=== PATIENT | male | born 1960 | race Caucasian/White ===

== ENCOUNTER 2020-05-06 17:35 | Outpatient (CLI) | payer BC, SELFPAY ==
[2020-05-06 17:56] LABS: Basophils Absolute Auto 0.05 K/mm3 (0.00-0.10); Basophils Percent Auto 0.8 % (0.0-1.0); Eosinophils Absolute Auto 0.09 K/mm3 (0.02-0.50); Eosinophils Percent Auto 1.4 % (1.0-6.0); Hematocrit 47.4 % (40.0-54.0); Hemoglobin 15.8 g/dL (14.0-18.0); Immature Granulocyte Absolute 0.01 K/mm3 (0.00-0.00); Immature Granulocyte Percent A 0.2 % (0.0-0.0); Lymphocytes Absolute Auto 2.47 K/mm3 (1.10-4.50); Lymphocytes Percent Auto 39.6 % (18.0-42.0); Mean Corpuscular HGB Conc 33.3 g/dL (32.0-36.0); Mean Corpuscular Hemoglobin 31.3 pg (27.0-31.0); Mean Platelet Volume 9.2 fl (8.7-11.0); Monocytes Absolute Auto 0.56 K/mm3 (0.10-0.90); Neutrophils Absolute Auto 3.1 K/mm3 (1.7-7.2); Platelet Count Result 234 K/mm3 (150-420); Red Blood Count 5.04 M/mm3 (4.70-6.10); Red Cell Distribution Width 11.7 % (11.6-14.4); White Blood Count 6.2 K/mm3 (4.8-10.8)
[2020-05-06 17:57] LABS: Add Urine Microscopic? NO; Appearance Urine Clear (Clear); Bilirubin Urine Negative (Negative); Blood Urine Negative (Negative); Color Urine Yellow (Yellow); Glucose Urine UA Negative (Negative); Ketones Urine Negative (Negative); Leukocyte Esterase Ur Negative (Negative); Nitrate Urine Negative (Negative); Protein Urine Negative (Negative); Specific Grav Ur >= 1.030 (1.010-1.020); Urobilinogen Urine 0.2 mg/dL (0.2-1.0); pH Urine 5.5 (5.0-8.0)
[2020-05-06 18:39] LABS: Alanine Aminotransferase 40 U/L (16-63); Albumin Level 4.2 g/dL (3.4-5.0); Alkaline Phosphatase 72 U/L (46-116); Anion Gap 7 mmol/L (8-16); Aspartate Amino Transferase 22 U/L (15-37); Bilirubin,Total 0.6 mg/dL (0.00-1.00); Blood Urea Nitrogen 16 mg/dL (7-18); Calcium 9.3 mg/dL (8.5-10.1); Carbon Dioxide 32 mmol/L (21-32); Chloride 103 mmol/L (98-108); Cholesterol 243 mg/dL (0-200); Creatine Kinase 169 U/L (39-308); Estimated Glomerular Filt Rate > 60; Glucose 92 mg/dL (70-99); HDL Direct 39 mg/dL (40-60); LDL Cholesterol Calculated 123 mg/dL (<130); Osmolality Calculated 295 mOsm/kg (285-295); Potassium 4.2 mmol/L (3.5-5.1); Sodium 142 mmol/L (136-145); Total Protein 7.2 g/dL (6.4-8.2); Triglycerides 407 mg/dL (0-150)
[2020-05-06 18:56] LABS: LDL Cholesterol Direct 107 mg/dL (0-130)
== END 2020-05-06 17:36 | disposition home or self-care (01) ==
LOC: CHSLAB 17:36
PROVIDERS: PCP Internal Medicine; Visit Provider Internal Medicine
DX: Z00.00 Encounter for general adult medical examination without abnormal findings (principal)
CPT/HCPCS: 36415; 80053; 80061; 81003; 82550; 83721; 85025

== ENCOUNTER 2021-02-22 08:31 | Outpatient (RCR) | payer BC, SELFPAY ==
--- NOTE | 2021-02-22 11:08 | OTOPEVAL ---
Thank you for referring Doug Pena to [facility] [place] [place] The patient is scheduled to be seen for therapy? ____x/week for ___ weeks. Please review, sign, date and return this plan of care OSCAR. I agree with and certify that the following plan of care is medically necessary. Referring Physician Date Admitting Provider: Attending Provider: Gary Blackman Referring Provider: *OT Outpatient Evaluation Start: 02/22/21 07:32 Freq: Status: Active Protocol: Document 02/22/21 08:05 [facility] [place] (Rec: 02/22/21 09:55 [facility] [place] [id number]) Therapy Assessment Status Assessment Status Assessment Status Evaluation Evaluation Information Problem Diagnosis R medial elbow pain Onset 08/2020 Cause R medial epicondylitis Subjective Information Patient reports the following: Query Text:As Reported By Patient/ constant pain in the R medial Family elbow. Patient reports that it wakes him through the night and becomes very painful when it is hanging by his side for a prolonged time. 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 Patient has recently started taking a steroid and is on day 4 however has not noticed much improvement. 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
--- NOTE | 2021-02-23 15:54 | PCOTNOTE ---
On 02/23/21, the student, [ Ambika Goss ], provided care and completed [facility] documentation on this patient. I have reviewed the student's documentation and agree with the findings. MS
--- NOTE | 2021-03-01 09:48 | PCOTNOTE ---
On 03/01/21, the student, [Ambika Goss ], provided care and completed [facility] documentation on this patient. I have reviewed the student's documentation and agree with the findings. MS
--- NOTE | 2021-03-10 13:19 | PCOTNOTE ---
On 03/08/21, the student, [ Ambika Goss], provided care and completed [facility] documentation on this patient. I have reviewed the student's documentation and agree with the findings. MS
--- NOTE | 2021-03-29 17:49 | OTOPEVAL ---
Thank you for referring Doug Pena to [facility].? The patient is scheduled to be seen for therapy? ____x/week for ___ weeks. Please review, sign, date and return this plan of care OSCAR. I agree with and certify that the following plan of care is medically necessary. Referring Physician Date Admitting Provider: Attending Provider: Gary Blackman Referring Provider: *OT Outpatient Evaluation Start: 02/22/21 07:32 Freq: Status: Active Protocol: Document 03/29/21 08:30 [facility] (Rec: 03/29/21 17:49 [facility] [id number]) Therapy Assessment Status Assessment Status Assessment Status Discharge Outpatient Past Medical History Neurological History Hx Neurological Disorders No Significant History Cardiovascular History Hx Cardiac Disorders No Significant History Respiratory History Hx Respiratory Disorders No Significant History Gastrointestinal History Hx Gastroesophageal Reflux Disease Yes: Doctor recently started patient on acid reflux medication Genitourinary History Hx Genitourinary Disorders No Significant History Musculoskeletal History Hx Musculoskeletal Disorders No Significant History Hematological History Hx Hematological Disorders No Significant History Endocrine History Hx Endocrine Disorders No Significant History HEENT History Hx HEENT Disorders No Significant History Integumentary History Hx Skin Disorders No Significant History Reproductive History Hx Reproductive Disorders No Significant History Psychosocial History Hx Psychiatric Disorders No Significant History Pain History History of Any Previous or Ongoing No Significant History Instance of Pain Anesthesia History Hx Anesthesia Reactions No Significant History Evaluation Information Problem Subjective Information Patient reports that overall Query Text:As Reported By Patient/ his R elbow feels much better Family since starting therapy. He reports that the highest his name gets is a 2/10 but primarily is a 0 or 1. Patient reports that he feels confident with all home programming and is able to perform everything that needs to. Pain Assessment Timing of Pain Assessment Timing of Pain Assessment Re-assessment Pain Scale Pain Scale Used Numeric (1 - 10) Self Report Pain Assessment Right Elbow(s) Reported Pain Level 1 Pain Score Pain Score 1: Self Report Interventions Used Interventions Used By Clinicians Activity or ADL's,Heat,Manual
== END 2021-03-29 17:56 | disposition home or self-care (01) ==
LOC: CHSOT 08:31
DX: M25.521 Pain in right elbow (principal)
CPT/HCPCS: 97014; 97035; 97110; 97140; 97165; G0283

== ENCOUNTER 2021-03-18 09:13 | Outpatient (CLI) | payer BC, SELFPAY ==
--- NOTE | ~2021-03-18 | XR_ITS ---
MODIFIED ESOPHAGRAM HISTORY: Dysphagia. TECHNIQUE: Modified barium esophagram was performed by speech pathologist under radiologist fluorosco pic guidance. This was recorded on tape. The exam was reviewed on 03/18/2021 11:11 CDT. One fluoros copic image.. Fluoroscopy time is 1.1 minutes. FINDINGS: Lateral projection of the cervical spine demonstrates normal alignment with mildly promin ent ventral osteophyte at C4.. Normal oral stage. During pharyngeal stage there is vallecular and pir iform sinus residue without relation or aspiration.. IMPRESSION: 1: Normal swallowing function without penetration or aspiration. 2: Please refer to speech pathologist report for additional detail. Reviewed, dictated and finalized at location B.
--- NOTE | 2021-03-18 11:06 | STOPEVAL ---
Thank you for referring Doug Pena JrTriny to [facility].? This was an evaluation only. Please review, sign, date and return this OSCAR. I agree with the evaluation findings. Referring Physician Date Admitting Provider: Attending Provider: Cecil Wolfe MD Referring Provider: [facility] Outpatient Evaluation Start: 03/18/21 10:31 Freq: Status: Active Protocol: Document 03/18/21 09:50 [facility] (Rec: 03/18/21 11:05 [facility] [id number]) Therapy Assessment Status Assessment Status Assessment Status Evaluation Outpatient Past Medical History Past Medical History Source of Past Medical History Patient Neurological History Hx Neurological Disorders No Significant History Cardiovascular History Hx Cardiac Disorders No Significant History Respiratory History Hx Respiratory Disorders No Significant History Gastrointestinal History Hx Gastroesophageal Reflux Disease Yes: Doctor recently started patient on acid reflux medication Genitourinary History Hx Genitourinary Disorders No Significant History Musculoskeletal History Hx Musculoskeletal Disorders No Significant History Hematological History Hx Hematological Disorders No Significant History Endocrine History Hx Endocrine Disorders No Significant History HEENT History Hx HEENT Disorders No Significant History Integumentary History Hx Skin Disorders No Significant History Reproductive History Hx Reproductive Disorders No Significant History Psychosocial History Hx Psychiatric Disorders No Significant History Pain History History of Any Previous or Ongoing No Significant History Instance of Pain Anesthesia History Hx Anesthesia Reactions No Significant History Evaluation Information Problem Diagnosis Dysphagia Onset 1 year ago Subjective Information Patient reported that he Query Text:As Reported By Patient/ started having difficulty Family swallowing solid foods within the past year. Difficult foods currently include; palestinian fries, hamburger, rice, meat, nuts, pizza, raw vegetable. He complains of food going into the nasal cavity but also pointed to his throat with difficulty. He did not report to start coughing but would throat clear and eventually the bolus would clear. He reported difficulty 4-5x per week. Prior Level of
== END 2021-03-18 09:14 | disposition home or self-care (01) ==
LOC: CHSIMG 09:16
PROVIDERS: PCP Internal Medicine; Visit Provider Internal Medicine
DX: R13.10 Dysphagia, unspecified (principal)
CPT/HCPCS: 92611

== ENCOUNTER 2021-05-26 01:07 | Day surgery (SDC) | payer BC, SELFPAY ==
[2021-05-18 10:42] VITALS: BMI 25.9
--- NOTE | 2021-05-25 13:57 | P.PNAN_ITS ---
Anes - Initial Pre Proc Eval Procedure: Operation Date: 05/26/21 08:00 Proposed Procedures p Esophagogastroduodenoscopy - Da Loera MD Date/Time: 05/25/21 13:57 Surgeon: Da Loera MD Pre Op Diagnosis: dysphagia Patient Data Age: 60 Gender: M Height: 1.78 m Weight: 82 kg Allergies Allergy/AdvReac Type Severity Reaction Status Date / Time No Known Allergies Allergy Verified 05/26/21 06:59 Home Medications Medication Instructions Recorded Confirmed Type atorvastatin 10 mg tablet 10 mg PO DAILY 05/12/21 05/18/21 History metoclopramide HCl 10 mg tablet 10 mg PO Q6H PRN 05/12/21 05/18/21 History pantoprazole 40 mg tablet,delayed 40 mg PO BID tablet 05/12/21 05/18/21 History release tamsulosin 0.4 mg capsule 0.4 mg PO DAILY 05/12/21 05/18/21 History Patient hx anesthesia problems: none Family hx anesthesia problems: none Results Review: All pre-operative results and documents have been reviewed as part of the pre-operative evaluation. [facility] Past Medical History Medical History (Updated 05/26/21 @ 07:22 by Da Loera MD) HLD (hyperlipidemia) Overweight (BMI 25.0-29.9) Family History Family History Other Family history of congestive heart failure Family history of coronary artery disease Family history of elevated blood lipids Family history of kidney disease Hypertension Social History Social History Smoking status: Never smoker Alcohol intake: never Substance use: never Substance use type: does not use Living arrangements: with family Spiritual care concerns: No Anes - Eval Final PreProcedure Day of Procedure 05/25/21 13:57 Patient weight: overweight Heart: regular rate and rhythm Lungs: clear to auscultation and normal air movement Airway: Mallampati scale class II Neurological: alert and oriented Last oral intake: >/= 8 hours ASA classification: II Emergent: no Anesthetic plan: proceed Anesthesia type and monitoring: general GIVS and standard monitoring Results Review: All pre-operative results and documents have been reviewed as part of the pre-operative evaluation. Informed Consent: The patient's anesthetic plan and its attendant risks and benefits were discussed with the patient/family/POA. Questions were solicited and answers provided to the satisfaction of the patient/family/POA.
[2021-05-26 07:00] VITALS: BP 124/92; PULSE 80; RESP 16; TEMP 36.1; O2SAT 98
[2021-05-26] MEDS: LACTATED RINGERS 1,000 ML 150 ML IV CONT (07:09)
--- NOTE | 2021-05-26 07:20 | WPDGICN ---
Assessment and Plan Assessment and plan (1) Dysphagia: Code(s): R13.10 - Dysphagia, unspecified Status: Acute Assessment and Plan: Patient with complaints of dysphagia. Plan is for EGD to assess for possible esophageal etiology. Also to exclude any diverticula or narrowing of the esophagus. His history is difficult to ascertain the etiology. Further recommendations will be given after EGD. GI Consult Note Consult date/time: 05/26/21 07:20 HPI: Doug Pena Jr. is a 60 year old male Presents for EGD. He has complaints of difficulty swallowing. He states small pieces of food will catch in the back of his throat. Sometimes he will fill it up in the nasal area. Sometimes will 5 be dislodged and come back up easily. He states that when this occurs he is usually able to eat. Patient had 1 episode with some sternal pain pain burning that occurred at work. Otherwise has had no pain. Patient was empirically tried on pantoprazole and Reglan. It is uncertain whether this made any difference in his symptoms. He presents today for EGD to evaluate more thoroughly. He tells me a modified barium swallow was performed and was unremarkable. Review of Systems Review of Systems: All systems reviewed & are unremarkable except as noted in HPI and below PMFSH Past Medical History Medical History (Updated 05/26/21 @ 07:22 by Da Loera MD) HLD (hyperlipidemia) Overweight (BMI 25.0-29.9) Family History Family History Other Family history of congestive heart failure Family history of coronary artery disease Family history of elevated blood lipids Family history of kidney disease Hypertension Social History Social History Smoking status: Never smoker Alcohol intake: never Substance use: never Substance use type: does not use Living arrangements: with family Spiritual care concerns: No Meds Home Medications and Allergies Home Medications Medication Instructions Recorded Confirmed Type atorvastatin 10 mg tablet 10 mg PO DAILY 05/12/21 05/26/21 History metoclopramide HCl 10 mg tablet 10 mg PO Q6H PRN 05/12/21 05/26/21 History pantoprazole 40 mg tablet,delayed 40 mg PO BID tablet 05/12/21 05/26/21 History release tamsulosin 0.4 mg capsule 0.4 mg PO DAILY 05/12/21 05/26/21 History Allergies Allergy/AdvReac Type Severity Reaction Status Date / Time No Known Allergies Allergy Verified 05/26/21 06:59 Vital Signs Vital Signs - 24 hr 05/26/21 07:00 Temperature 97.0 F L Pulse Rate 80 Respiratory Rate 16 Blood Pressure 124/92 H Pulse Oximetry 98 Exam Narrative: Physical exam reveals patient be alert. Vital signs stable. HEENT exam is unremarkable. Patient is anicteric. Lungs are clear to auscultation and percussion. Heart is without murmur or extra sounds. Abdominal exam bowel sounds are present soft nontender with no organomegaly.
[2021-05-26] MEDS: BENZOCAINE (*SP) 60 ML SPRAY CAN (HURRICAINE) 1 SPRAY MUCOUS MEM (07:57)
[2021-05-26 08:12] VITALS: BP 119/79; PULSE 74; RESP 20; O2SAT 98
[2021-05-26 08:22] VITALS: BP 125/86; PULSE 85; RESP 20; O2SAT 99
[2021-05-26 08:32] VITALS: BP 130/91; PULSE 67; RESP 14; O2SAT 100
--- NOTE | 2021-05-26 08:41 | SUR.PHASEII ---
RN updated patient's Rayna on patient's recovery status.
== END 2021-05-26 08:49 | disposition home or self-care (01) ==
PROVIDERS: PCP Internal Medicine; Visit Provider Internal Medicine Gastroenterology
PROC: 0DJ08ZZ Inspection of Upper Intestinal Tract, Via Natural or Artificial Opening Endoscopic (ICD-10-PCS; CPT 43235; principal; 2021-05-26 08:00)
DX: R13.19 Other dysphagia (principal); K22.2 Esophageal obstruction; E78.5 Hyperlipidemia, unspecified
CPT/HCPCS: 43450; J2704; J7120

== ENCOUNTER 2021-06-21 09:49 | Outpatient (CLI) | payer BC, SELFPAY ==
--- NOTE | ~2021-06-21 | XR_ITS ---
XR foot RT min 3V DATE: 06/21/2021 10:12 INDICATION: Kicking injury. Right foot pain and swelling TECHNIQUE: 5 views COMPARISON: None FINDINGS: There is a virtually nondisplaced linear oblique fracture through the shaft of the proximal phalanx of the third digit. No other fracture or dislocation. No periosteal reaction or bone destruc tion. There is mild plantar and moderate posterior calcaneal enthesopathy. IMPRESSION: Virtually nondisplaced linear oblique fracture of shaft of proximal phalanx of the third digit Reviewed, dictated and finalized at location A. ER COORDINATOR
== END 2021-06-21 09:50 | disposition home or self-care (01) ==
LOC: CHSIMG 09:51
PROVIDERS: PCP Internal Medicine; Visit Provider Nurse Practitioner Family
DX: M79.671 Pain in right foot (principal); M79.89 Other specified soft tissue disorders
CPT/HCPCS: 73630

== ENCOUNTER 2021-07-12 10:07 | Outpatient (CLI) | payer BC, SELFPAY ==
--- NOTE | ~2021-07-12 | XR_ITS ---
XR foot RT min 3V DATE: 07/12/2021 10:25 INDICATION: Follow-up fractures of third and fourth digits TECHNIQUE: 4 views COMPARISON: 06/21/2021 right foot FINDINGS: There is no interval displacement or angulation at the previously reported virtually nondis placed fracture of the shaft of the proximal phalanx of the third digit. The fracture line is virtual ly indistinct consistent with interval healing. No other fracture or any dislocation is evident. Plantar and posterior calcaneal enthesopathy. IMPRESSION: Healing virtually nondisplaced fracture of proximal phalanx of third digit Reviewed, dictated and finalized at location B. 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
== END 2021-07-12 10:08 | disposition home or self-care (01) ==
LOC: CHSIMG 10:09
PROVIDERS: PCP Internal Medicine; Visit Provider Internal Medicine
DX: S92.501D Displaced unspecified fracture of right lesser toe(s), subsequent encounter for fracture with routine healing (principal)
CPT/HCPCS: 73630

== ENCOUNTER 2021-09-05 09:01 | Outpatient (CLI) | payer BC, SELFPAY ==
--- NOTE | ~2021-09-05 | XR_ITS ---
EXAM: XR foot RT min 3V HISTORY: M79.671 - Pain in right foot COMPARISON: 07/12/2021. FINDINGS: No acute fracture or dislocation. Healed third proximal phalanx fracture. Mild degenerativ e change at the first MTP. Achilles and plantar enthesopathy. Decreased mineralization. IMPRESSION: No acute osseous finding in the right foot. Reviewed, dictated and finalized at location K.
== END 2021-09-05 09:02 | disposition home or self-care (01) ==
LOC: CHSIMG 09:03
PROVIDERS: PCP Internal Medicine; Visit Provider Orthopaedic Surgery
DX: M79.671 Pain in right foot (principal)
CPT/HCPCS: 73630

== ENCOUNTER 2021-09-21 08:00 | Outpatient (RCR) | payer BC, SELFPAY ==
--- NOTE | 2021-09-21 08:58 | PTOPEVAL ---
Thank you for referring Doug Pena to [facility].? The patient is scheduled to be seen for therapy? __2__x/week for 8 visits. Please review, sign, date and return this plan of care OSCAR. I agree with and certify that the following plan of care is medically necessary. Referring Physician Date Admitting Provider: Attending Provider: Ashish Zarco MD Referring Provider: *PT Outpatient Evaluation Start: 09/21/21 08:08 Freq: Status: Active Protocol: Document 09/21/21 08:08 [facility] (Rec: 09/21/21 08:57 [facility] [email or web address]) Therapy Assessment Status Assessment Status Assessment Status Evaluation Outpatient Past Medical History Neurological History Hx Neurological Disorders No Significant History Cardiovascular History Hx Hypercholesterolemia Yes Respiratory History Hx Respiratory Disorders No Significant History Gastrointestinal History Hx Gastroesophageal Reflux Disease Yes: Doctor recently started patient on acid reflux medication Hx Hernia Yes: umbilical and inguinal Genitourinary History Hx Kidney Stones Yes Musculoskeletal History Hx Spinal Surgery Yes: 2005 lumbar with metal implants Hematological History Hx Hematological Disorders No Significant History Endocrine History Hx Endocrine Disorders No Significant History HEENT History Hx HEENT Disorders No Significant History Integumentary History Hx Excision Skin Lesion Yes: melanoma Hx Shingles Yes Reproductive History Hx Reproductive Disorders No Significant History Psychosocial History Hx Psychiatric Disorders No Significant History Pain History History of Any Previous or Ongoing No Significant History Instance of Pain Anesthesia History Hx Anesthesia Reactions No Significant History Other History Hx Cancer Yes: melanoma Evaluation Information Problem Diagnosis right foot pain Onset 06/15/21 Subjective Information Pt. reports that he injured Query Text:As Reported By Patient/ the middle toe after hitting Family it on a cabinet at home. He reports that he did fx the toe . He describes continued pain on the dorsal portion of the right foot. He also describes constant stiffness and deformity in the described 3rd toe. He states that pain is most notable with walking and states that his pain will
--- NOTE | 2022-01-11 08:39 | PCPTNOTE ---
Pt. attended a total of 7 treatment sessions from 09/20/21 to 10/13/21. He has failed to return to the clinic and will be discharged from our care at this time. Refer to last daily note for pt. discharge status.
== END 2021-10-13 23:59 | disposition home or self-care (01) ==
LOC: CHSPT 08:00
PROVIDERS: PCP Internal Medicine; Visit Provider Orthopaedic Surgery
DX: G57.81 Other specified mononeuropathies of right lower limb (principal)
CPT/HCPCS: 97035; 97110; 97140; 97161; 97530

== ENCOUNTER 2024-06-05 09:08 | Outpatient (CLI) | payer BC, SELFPAY ==
--- NOTE | ~2024-06-05 | XR_ITS ---
XR hip RT min 2V 06/05/2024 09:25 Indication: Right hip pain Procedure: 2 views right hip Comparison: No prior studies for comparison. Findings: There is mild osteoarthritis of the right hip. There is anatomic alignment. No fracture or traumatic malalignment. No soft tissue abnormality. Impression: 1: Mild osteoarthritis of the right hip. Reviewed, dictated and finalized at location B. 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
== END 2024-06-05 09:09 | disposition home or self-care (01) ==
LOC: CHSIMG 09:13
PROVIDERS: PCP Internal Medicine; Visit Provider Internal Medicine
DX: M16.11 Unilateral primary osteoarthritis, right hip (principal); M25.551 Pain in right hip
CPT/HCPCS: 73502

== ENCOUNTER 2024-07-08 07:52 | Outpatient (RCR) | payer BC, SELFPAY ==
--- NOTE | 2024-07-08 08:53 | OPREHPOC ---
Outpatient Therapy Plan of Care This is a Multidisciplinary Plan of Care that may contain components documented by all disciplines (PT, OT, and ST.) PT Problem 1 PT Problem #1 Knowledge Deficit PT Goal 1 Goal / Goal Update 1. independent and compliant with HEP Target Visit 6 PT Problem 2 PT Problem #2 Pain PT Goal 1 Goal / Goal Update 1. patient to report no more than 1/10 pain at worst in the neck in the last week Target Visit 12 PT Problem 3 PT Problem #3 Impaired Range of Motion PT Goal 1 Goal / Goal Update 1. 45 degrees or better active cervical flex and ext 2. 30 degrees or better active bilat cervical side bending 3. 75 degrees or better active bilat cervical rotation PT Problem 4 PT Problem #4 Impaired Strength PT Goal 1 Goal / Goal Update 1. 5/5 L triceps extension 2. 5/5 L thumb extension Target Visit 12 PT Problem 5 PT Problem #5 Impaired Functional Mobility PT Goal 1 Goal / Goal Update 1. ndi to display 5% or less functional deficits 2. quick dash to display 5% or less functional deficits 3. patient to move neck freely in rotation both sides without increased pain/symptoms to safely drive 4. patient to return to work without increased pain or symptoms Target Visit 12
--- NOTE | 2024-07-08 08:53 | PTOPEVAL1 ---
Assessment and note entered by JT File, PT Evaluation Information Assessment Status Evaluation ICD-10 Condition Codes (PT) Cervicalgia M54.2,Radiculopathy, cervical M54.13, Pain in left shoulder M25.512 Onset 07/06/24 Subjective Information patient reports on 07/06/24 he woke up with pain in the L shoulder upper shoulder, shoulder blade, and down the L UE (back of the arm). he reports initially he felt some tingling the small finger of the L hand. since then, it has not gotten any better. he reports when he wakes up the morning his neck is more stiff and limited in looking over his L shoulder. Reported Pain Level Pain Score 4: Self Report Assessment PT Clinical Summary mr. nielsen is a 63 yo man who presents to skilled PT services for evaluation and treatment of neck and L UE pain. he presents this date with signs and symptoms that indicated a cervical radiculopathy of the lower cervical spine on the L side. he displays decreased rom, mm guarding, and slight L UE weakness. continued skilled PT is indicated to improve his objective/functional deficits and return to his prior level functional activity performance/quality of life. Plan of Care Interventions Electrical Stimulation,Hot Pack/Cold Pack,Manual Therapy,Mechanical Traction,Neuro Re-education, Patient/Caregiver Education,Therapeutic Activities ,Therapeutic Exercise PT Services Indicated Yes Treatment Frequency and 3x weekly for 12 visits Duration These treatments will address the objective and functional deficits as defined above. The patient will be advanced safely and appropriately in order for the patient to progress towards his/her prior level of function. Additional exercises will be introduced and as well as a comprehensive home exercise program upon discharge, if needed, ?to ensure carryover of functional gains achieved in the clinic. This treatment plan has been reviewed and agreement upon by the patient.
--- NOTE | 2024-08-01 10:34 | OPREHPOC ---
Outpatient Therapy Plan of Care This is a Multidisciplinary Plan of Care that may contain components documented by all disciplines (PT, OT, and ST.) PT Problem 1 PT Problem #1 Knowledge Deficit PT Goal 1 Goal / Goal Update 1. independent and compliant with HEP Target Visit 6 Progress Met PT Problem 2 PT Problem #2 Pain PT Goal 1 Goal / Goal Update 1. patient to report no more than 1/10 pain at worst in the neck in the last week Target Visit 12 Progress Not Met PT Problem 3 PT Problem #3 Impaired Range of Motion PT Goal 1 Goal / Goal Update 1. 45 degrees or better active cervical flex and ext 2. 30 degrees or better active bilat cervical side bending 3. 75 degrees or better active bilat cervical rotation Progress Not Met PT Problem 4 PT Problem #4 Impaired Strength PT Goal 1 Goal / Goal Update 1. 5/5 L triceps extension 2. 5/5 L thumb extension Target Visit 12 Progress Not Met PT Problem 5 PT Problem #5 Impaired Functional Mobility PT Goal 1 Goal / Goal Update 1. ndi to display 5% or less functional deficits 2. quick dash to display 5% or less functional deficits 3. patient to move neck freely in rotation both sides without increased pain/symptoms to safely drive 4. patient to return to work without increased pain or symptoms Target Visit 12 Progress Not Met
--- NOTE | 2024-08-01 10:34 | PTOPREEVAL ---
Assessment and note entered by JT File, PT Evaluation Information Assessment Status Re-evaluation ICD-10 Condition Codes (PT) Cervicalgia M54.2,Radiculopathy, cervical M54.13, Pain in left shoulder M25.512 Onset 07/06/24 Subjective Information patient reports the neck and L UE are still having pain and tingling down the L UE. he reports the pain overall that was in the back of his L arm is less, but reports he now has more tingling in the L UE. he reports he is follow up with his PCP after this to schedule an MRI of the neck. Reported Pain Level Pain Score 8: Self Report Assessment PT Clinical Summary mr. nielsen presents to skilled PT services for his 12th skilled therapy visit for his neck and L UE radicular symptoms. he continues to have radicular symptoms all day long. his symptoms have slightly changed from the constant pain to more pins and needles in the L UE. however, he still has pain in the neck today. he is moving more freely, but still limited in overall cervical rom. he has only met his goal for HEP performance today, and reports worse symptoms on the NDI and quick dash. we will hold continued skilled PT at this time, and suggest patient return to PCP for MRI of the neck. I still believe he is suffering from nerve impingement at the C7/8 level of the L side cervical spine. we have been unsuccessful thus far in manipulation attempts at this area as patient is too guarded to allow HVLAT movement for cavitation. Plan of Care Interventions Electrical Stimulation,Hot Pack/Cold Pack,Manual Therapy,Mechanical Traction,Neuro Re-education, Patient/Caregiver Education,Therapeutic Activities ,Therapeutic Exercise PT Services Indicated Yes Treatment Frequency and hold continued PT at this time. return to PCP for Duration MRI. These treatments will address the objective and functional deficits as defined above. The patient will be advanced safely and appropriately in order for the patient to progress towards his/her prior level of function. Additional exercises will be introduced and as well as a comprehensive home exercise program upon discharge, if needed, ?to ensure carryover of functional gains achieved in the clinic. This treatment plan has been reviewed and agreement upon by the patient.
== END 2024-10-06 23:59 | disposition home or self-care (01) ==
LOC: CHSPT 07:52
PROVIDERS: PCP Internal Medicine; Visit Provider Internal Medicine
DX: M54.2 Cervicalgia (principal)
CPT/HCPCS: 97012; 97014; 97110; 97140; 97161; 97530; G0283

== ENCOUNTER 2024-08-07 08:18 | Outpatient (CLI) | payer BC, SELFPAY ==
--- NOTE | ~2024-08-07 | MR_ITS ---
MRI of the cervical spine Clinical History: Radiculopathy Technique: Axial T2-weighted and gradient images, and sagittal T1-weighted, T2-weighted, and STIR debbie ges were acquired. Findings: There is no fracture or subluxation of the cervical spine. Vertebral bodies maintain normal height and alignment. No bone marrow signal reality seen. At C2-C3, there is no disc bulge or herniation. No spinal canal stenosis, cord compression or neural foraminal narrowing. At C3-C4, there is no disc bulge or herniation. No spinal canal stenosis, cord compression, or neural foraminal narrowing. At C4-C5, there is minimal disc bulge. No spinal canal stenosis, cord compression, or neural foramina l narrowing. Probable minimal facet hypertrophy. At C5-C6, there is mild disc ossify complex which minimally flattens the ventral cord. Bilateral neur al foramina are preserved. At C6-C7, there is left paracentral to left foraminal disc osteophyte complex with mild flattening th e ventral cord, especially on the left side. There is left neural foraminal narrowing. Right neural f oramen preserved. No abnormal signal seen in the spinal cord. Paravertebral soft tissues are unremarkable. Impression: Degenerative changes at C5-C6 and C6-C7, as detailed above. Reviewed, dictated and finalized at location M. Impression: Degenerative changes at C5-C6 and C6-C7, as detailed above.
== END 2024-08-07 08:19 | disposition home or self-care (01) ==
LOC: GOSHIMG 08:19
PROVIDERS: PCP Internal Medicine; Visit Provider Internal Medicine
DX: M47.812 Spondylosis without myelopathy or radiculopathy, cervical region (principal)
CPT/HCPCS: 72141